=== PATIENT | female | born 1995 | race Caucasian/White ===

== ENCOUNTER 2024-10-12 04:01 | Emergency (ER) | payer OTHER | END 2024-10-12 06:49 | disposition left against medical advice (07) | LOC: ER 04:01 | DX: R19.7 Diarrhea, unspecified (principal); Z53.21 Procedure and treatment not carried out due to patient leaving prior to being seen by health care provider ==

== ENCOUNTER 2024-10-12 07:29 | Emergency (ER) | payer OTHER ==
[~2024-10-12] VITALS: Ht 162.6 cm; Wt 51.0 kg
[2024-10-12 07:32] VITALS: BP 140/89; TEMP 97.6; O2SAT 100
== END 2024-10-12 10:15 | disposition home or self-care (01) ==
LOC: ER 07:32
DX: R19.7 Diarrhea, unspecified (principal); R10.84 Generalized abdominal pain; Z60.2 Problems related to living alone